=== PATIENT | male | born 1975 | race Caucasian/White ===

== ENCOUNTER 2018-11-25 09:05 | Observation (INO) | payer SELFPAY ==
--- NOTE | 2018-11-25 09:12 | ED Physician Documentation ---
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 He has tried Ibuprofen x 2 and feels this must have helped some because he was able to sleep. when he twists to the right or left he has a cramp sharp pain that lasts a few seconds. No obvious injury. No loss of control of bowel or bladder ) Associated Symptoms: denies: fever, chills, sweating, constipation, incontinence, nausea, vomiting, problems urinating Worsened By:: upright position, movement to RT flexion, movement to LT flexion Relieved By: supine Further Comments: yes (He states he was driving down the road Sunday and he went to [employer] and he notes a sharp pain on left lower back which now is entire lower back increased with leg movement and he did take Ibuprofen last night and this am 2 pills and this did help him sleep so he does feel this was improved. He denies any loss of control of bowel or bladder) - ROS CONST: no problems - PAST HX Past History: other (none ) Immunizations: UTD Allergies/Adverse Reactions: Allergies Allergy/AdvReac Type Severity Reaction Status Date / Time shellfish derived Allergy Verified 11/25/18 09:26 Home Medications: Ambulatory Orders Medication Instructions Recorded NK 11/25/18 - SOCIAL HX Smoking History: non-smoker Alcohol Use: none Drug Use: none - FAMILY HX Family History: none - VITAL SIGNS Vital Signs: Vital Signs Temp Pulse Resp BP Pulse Ox 98.5 F 71 18 133/76 94 11/25/18 17:25 11/25/18 17:25 11/25/18 17:25 11/25/18 17:25 11/25/18 18:00 - REVIEWED ASSESSMENTS Nursing Assessment Reviewed: Yes Vitals Reviewed: Yes Progress - Progress Progress: 0950: discussed results and plan. HE reports improvement in pain/cramp DG 1005: Pain is improved. Discussed plan - he is agreeable DG 1020: He attempted to stand and was not able due to pain. He will be admitted obs for pain DG ED Results Lab/Radiology - Radiology Radiology Impressions: Lumbar spine History: Low back pain AP and lateral projections of the lumbar spine demonstrate normal alignment. Vertebral body height and intervertebral disc space height is maintained except for very slight anterior wedging at T12. There is no spondylolisthesis or spondylolysis. Impression: Very slight anterior wedging at T12, likely chronic. Otherwise, no osseous abnormality. Electronically signed on Nov 25, 2018 9:31:42 AM CDT by: Ana Bassett - Orders Orders: ED Orders Category Date Time Status IV Started NOW Care 11/25/18 10:29 Active LUMBAR SPINE XR 2 OR 3 VIEWS [L SPINE 2 OR 3 VIEWS] [ Exams 11/25/18 Completed RAD] Stat 0.9 % Sodium Chloride [Normal Saline] 1,000 ml Med 11/25/18 10:29 Discontinued IV NOW Cyclobenzaprine HCl [Flexeril] Med 11/25/18 09:22 Discontinued 10 mg PO NOW ONE Ketorolac Tromethamine [Toradol] Med 11/25/18 09:21 Discontinued 60 mg IM NOW ONE diazePAM [Valium] Med 11/25/18 10:32 Discontinued 10 mg .ROUTE .STK-MED ONE diazePAM [Valium] Med 11/25/18 10:29 Discontinued 5 mg IV NOW ONE methylPREDNISolone ACETATE [DEPO-Medrol] Med 11/25/18 10:21 Discontinued 80 mg IM NOW ONE methylPREDNISolone SOD SUCC [SOLU-Medrol] Med 11/25/18 10:29 Discontinued 125 mg IVP NOW ONE Low Back Pain/Injury - Physical Exam General Appearance: alert, moderate distress (with movement ) EENT: eye inspection normal, no signs of dehydration Neck: non-tender, painless ROM Resp/CVS: chest non-tender, breath sounds nml, heart sounds nml, no resp. distress, lungs clear Abdomen: non-tender Back: non-tender, muscle spasm (right lower back ) Straight Leg Raising: Negative Left, Positive Right (starts the "cramp" per his report ) Neuro/Psych: oriented x3 Skin: warm/dry Discharge Clincal Impression: Low back pain Qualifiers: Chronicity: acute Back pain laterality: right Sciatica presence: with sciatica Sciatica laterality: sciatica of right side Qualified Code(s): M54.41 - Lumbago with sciatica, right side Comments: 1. Flexeril 10 mg take 1 by mouth every 8 hours as needed for pain (DO NOT DRIVE) 2. Ibuprofen 800 mg take 1 by mouth every 12 hours as needed for pain 3. Prednisone 20 mg take 1 by mouth daily x 5 days 4. Follow up with PCP in 2-4 days 5. Return to ER for increasing concerns Referral to ortho/spine made DG Condition: Stable Decision to Admit: NO Date of Decison to Admit: 11/25/18 Decision Time: 11:00
[2018-11-25] MEDS ORDERED: KETOROLAC TROMETHAMINE 60 MG/2 ML VIAL IM ONE (09:21)
[2018-11-25] MEDS ORDERED: CYCLOBENZAPRINE HCL 10 MG TABLET PO ONE (09:22)
--- NOTE | 2018-11-25 10:05 | Diagnostic Imaging Report ---
AFTAB BAUGH [facility] [id number] [facility].[address] [id number] Report Submission Date: Nov 25, 2018 9:31:42 AM CDT Patient Study Name: YENNY WILL Date: Nov 25, 2018 9:05:10 AM CDT Modality Type: DX Gender: M Description: L SPINE 2 OR 3 VIEWS : 77 Institution: [facility] Physician: AFTAB BAUGH Lumbar spine History: Low back pain AP and lateral projections of the lumbar spine demonstrate normal alignment. Vertebral body height and intervertebral disc space height is maintained except for very slight anterior wedging at T12. There is no spondylolisthesis or spondylolysis. Impression: Very slight anterior wedging at T12, likely chronic. Otherwise, no osseous abnormality. Electronically signed on Nov 25, 2018 9:31:42 AM CDT by: Ana BELLO
[2018-11-25] MEDS ORDERED: methylPREDNISolone ACETATE 80 MG/ML VIAL IM ONE (10:21)
[2018-11-25] MEDS ORDERED: methylPREDNISolone SOD SUCC 125 MG/2 ML VIAL IVP ONE (10:29)
[2018-11-25] MEDS ORDERED: 0.9 % SODIUM CHLORIDE 1,000 ML IV ONE (10:29)
[2018-11-25] MEDS ORDERED: CYCLOBENZAPRINE HCL 10 MG TABLET PO PRN (10:49)
[2018-11-25] MEDS ORDERED: KETOROLAC TROMETHAMINE 30 MG/1ML VIAL IV PRN (10:49)
[2018-11-25 11:08] VITALS: BMI 34.7
[2018-11-25] MEDS: 0.9 % SODIUM CHLORIDE 1,000 ML IV SCH ×2 (12:32→22:55)
[2018-11-26] MEDS ORDERED: FAMOTIDINE 20 MG TABLET PO ONE (02:57)
[2018-11-26 08:45] VITALS: BP 117/54
[2018-11-26] MEDS: 0.9 % SODIUM CHLORIDE 1,000 ML IV SCH (11:04)
--- NOTE | 2018-11-26 11:14 | Discharge Summary ---
Discharge Summary - Discharge Tab Admission Date: 11/25/18 Discharge Date: 11/26/18 Discharge To: Home Condition at Discharge: Stable Home Medications: Ambulatory Orders Medication Instructions Recorded Cyclobenzaprine HCl [Flexeril] 10 mg PO Q8 #90 tablet 11/26/18 predniSONE [Deltasone] 10 mg PO DIRECTED #15 tablet 11/26/18 Consultations this Visit: None Procedures this Visit: None Allergies/Adverse Reactions: Allergies Allergy/AdvReac Type Severity Reaction Status Date / Time shellfish derived Allergy Verified 11/25/18 09:26 Patient Problems: Current Active Problems Problem Status Onset Low back pain Acute Discharge Summary: Patient presented to ER on date of admission with a 2 day history of low back pain radiating down his left leg. 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 He was unable to ambulate from the ER. He was admitted and placed on anti- inflammatories and muscle relaxers. Valium seemed to give him the most relief. PT evaluated the patient. The following day he was able to ambulate better. 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 Patient was discharged in steroid taper and flexeril with instructions not to drive while taking Flexeril. He will follow up with PCP for MRI imaging and possible neurosurgery referral if indicated.
== END 2018-11-26 13:15 | disposition home or self-care (01) ==
LOC: ED 09:05 → SOUTH 10:42
PROVIDERS: ADMIT Nurse Practitioner Family; ATTEND Nurse Practitioner Family
DX: M54.41 Lumbago with sciatica, right side (principal)
CPT/HCPCS: 72100; 96360; 96372; 96374; 99283; 99284; J1885; J2930; G0378; J7030; S1016